=== PATIENT | female | born 2000 | race Caucasian/White ===

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

== ENCOUNTER 2020-06-02 13:10 | Emergency (ER) | payer MEDICAID, OTHER ==
[~2020-06-02] VITALS: Ht 167.6 cm; Wt 64.3 kg
--- NOTE | 2020-06-02 14:20 | NUR ---
JOSE CARLOS, PSYCH MEDICATION AIDE AND JADON AT BEDSIDE FOR EVALUATION.
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
[2020-06-02] MEDS ORDERED: LORazepam 1MG TABLET PO ONE (15:00)
[2020-06-02] MEDS ORDERED: LORazepam 1MG TABLET ONE (15:02)
[2020-06-02 15:07] LABS: BASOPHILS % (AUTO) 1 % (0-1); EOSINOPHILS % (AUTO) 1 % (1-7); LYMPHOCYTES % (AUTO) 24 % (22-44); MEAN CORPUSCULAR HEMOGLOBIN 29.8 pg (27.0-34.8); MEAN CORPUSCULAR HGB CONC 34.2 g/dL (32.4-35.8); MEAN PLATELET VOLUME 6.7 fL (7.4-10.4); MONOCYTES % (AUTO) 6 % (2-9); NEUTROPHILS % (AUTO) 68 % (42-75); PLATELET COUNT 323 x10^3/uL (130-400); RED BLOOD COUNT 4.92 x10^6/uL (3.82-5.3); RED CELL DISTRIBUTION WIDTH 12.3 % (9.6-15.2)
--- NOTE | 2020-06-02 15:13 | NUR ---
PATIENT LAYING IN GURNEY, STARING AT CEILING, FLAT AFFECT, NADN, VSS, SITTER IN LINE OF SIGHT, WILL CONTINUE TO MONITOR.
[2020-06-02 15:19] LABS: ALBUMIN 4.9 g/dL (3.4-5.0); ANION GAP 11 mmol/L (5-15); CALCIUM 8.7 mg/dL (8.5-10.1); CHLORIDE 109 mmol/L (98-107); MD NO
[2020-06-02 15:22] LABS: SALICYLATE LEVEL < 1.7 mg/dL (2.8-20.0)
[2020-06-02 15:25] LABS: ALANINE AMINOTRANSFERASE 34 U/L (12-78); ALKALINE PHOSPHATASE 77 U/L (45-117); BILIRUBIN,TOTAL 0.9 mg/dL (0.2-1.0); CREATININE 0.86 mg/dL (0.55-1.02); TOTAL PROTEIN 8.4 g/dL (6.4-8.2)
--- NOTE | 2020-06-02 15:51 | NUR ---
MOM IS YOLANDA, PHONE NUMBER IS [phone].
--- NOTE | 2020-06-02 16:04 | NUR ---
PATIENT LAYING IN GURNEY STARING AT CEILING, ASKED PATIENT IF SHE CAN TRY AND URINATE AT THIS TIME FOR SAMPLE. PATIENT SLOW TO RESPOND, PATIENT DOES NOT GIVE VERBAL RESPONSE, JUST SHAKES HER HEAD NO. SHARON WOODS, SITTER IN LINE OF SIGHT.
--- NOTE | 2020-06-02 16:48 | NUR ---
PATIENT DOES NOT WANT TO GET UP AND USE BATHROOM TO LEAVE URINE SAMPLE. URINE SAMPLE OBTAINED VIA STRAIGHT CATH, WITH SERGEI RABAGO DOWEL SANDER OPERATOR TO THIS RN. PATIENT TOLERATED PROCEDURE WELL, URINE SENT TO LAB.
[2020-06-02 17:06] LABS: AMPHETAMINE SCREEN, URINE Negative (Negative); BARBITURATE SCREEN, URINE Negative (Negative); BENZODIAZEPINE SCREEN, URINE Negative (Negative); CANNABINOID SCREEN, URINE Positive (Negative); COCAINE SCREEN, URINE Negative (Negative); METHADONE SCREEN, URINE Negative (Negative); OPIATE SCREEN, URINE Negative (Negative)
--- NOTE | 2020-06-02 17:46 | NUR ---
BREAK RN: PT RESTING IN ROOM. NO ACUTE DISTRESS NOTED. VS STABLE. SITTER AT DOOR. WILL CONTINUE TO MONITOR WHILE PRIMARY RN IS ON BREAK.
--- NOTE | 2020-06-02 18:21 | NUR ---
BREAK RN: REPORT GIVEN TO GUSTAVO ZUNIGA
--- NOTE | 2020-06-02 18:26 | NUR ---
PACKET FAXED TO [facility]
--- NOTE | 2020-06-02 18:28 | NUR ---
PATIENT RESTING IN GURNEY, STARING AT CEILING, NADN, VSS, SITTER IN LINE OF SIGHT, WILL CONTINUE TO MONITOR.
--- NOTE | 2020-06-02 19:57 | NUR ---
PATIENT RESTING IN GURNEY WITH EYES CLOSED, RESPIRATIONS EVEN AND UNLABORED, VSS, SITTER IN LINE OF SIGHT, WILL CONTINUE TO MONITOR.
--- NOTE | 2020-06-02 20:44 | NUR ---
SPOKE WITH MOM AND UPDATED ON POC.
--- NOTE | 2020-06-02 21:20 | NUR ---
PATIENT TRANSFERRED TO HOSPITAL BED, PATIENT ABLE TO AMBULATED WITH STEADY GAIT FROM [facility] TO HOSPITAL BED.
--- NOTE | 2020-06-02 22:32 | NUR ---
report from mandy bansal
--- NOTE | 2020-06-02 22:33 | NUR ---
pt resting on hospital bed. call light within reach and educated on its use. pt denies needs at this time. denies si. pt offered meal. declined. i told her to let me know if she changes her mind and i will get her a meal.
--- NOTE | 2020-06-02 22:34 | NUR ---
pt denies any home meds
--- NOTE | 2020-06-02 23:56 | NUR ---
REPORT TO GUSTAVO MAHAN
--- NOTE | 2020-06-03 00:07 | NUR ---
PT MOVED TO SECURE ROOM. PT SLEEPING, VISIBLE CHEST RISE AND FALL. SITTER WATCHING.
--- NOTE | 2020-06-03 07:12 | NUR ---
Report from GUSTAVO Barajas
--- NOTE | 2020-06-03 07:46 | NUR ---
Pt with flat affect, denies needs at this time. Sitter outside room. VS updated.
--- NOTE | 2020-06-03 08:06 | NUR ---
Diet tray ordered
--- NOTE | 2020-06-03 09:31 | NUR ---
Pt sleeping, no distress noted.
--- NOTE | 2020-06-03 10:25 | NUR ---
No change to baseline. Flat affect, nods "yes", "no", for all communication. VSWNL.
--- NOTE | 2020-06-03 11:15 | NUR ---
Female RN at bedside to assess pt for self inflicted cutting in groin area. RN states approx. 3 cm superficial cuts. Pt states cuts are 1 month old.
[2020-06-03] MEDS ORDERED: HYDROXYZINE PAMOATE 50MG CAP PO PRN (11:30)
[2020-06-03] MEDS ORDERED: TRAZODONE 50MG TABLET PO PRN (11:30)
--- NOTE | 2020-06-03 11:49 | NUR ---
Per psych MUSIC THEORY TEACHER, mom allowed to visit. Parent updated.
--- NOTE | 2020-06-03 14:14 | NUR ---
PT MOVED TO ROOM 2 AND ASSUMED CARE OF PT. PT IS IN DIRECT SITE OF SITTER.
[2020-06-03] MEDS ORDERED: SERTRALINE 50MG TABLET ONE (14:43)
[2020-06-03] MEDS ORDERED: OLANZAPINE 5 MG TABLET ONE (14:43)
[2020-06-03] MEDS: OLANZAPINE 5 MG TABLET PO SCH (14:50)
[2020-06-03] MEDS: SERTRALINE 50MG TABLET PO SCH (14:51)
--- NOTE | 2020-06-03 14:53 | NUR ---
RECEIVED REPORT FROM LUIS AND MEDICATED NOTED ON AUG.
--- NOTE | 2020-06-03 16:06 | NUR ---
PT SLEEPING. HR DECREASED TO 85.
--- NOTE | 2020-06-03 18:49 | NUR ---
PT DINNER DELIVERED AND LEFT BEDSIDE. PT RESTING WITH EYES CLOSED. EVEN RISE AND FALL OF CHEST NOTED. IN FULL VIEW OF THE SITTER.
--- NOTE | 2020-06-03 19:08 | NUR ---
REPORT GIVEN TO GUSTAVO MAHAN
--- NOTE | 2020-06-03 19:24 | NUR ---
REPORT FROM GUSTAVO SERRANO. PT RESTING IN BED, IN VIEW OF SITTER. PT SLEEPING, AWAKES WHEN THIS RN TOUCHES HER HAND. PT NOT ANSWERING QUESTIONS, THIS RN ASKED "WILL YOU TALK TO ME," PT SHOOK HEAD NO IN RESPONSE.
--- NOTE | 2020-06-04 06:57 | NUR ---
REPORT RECEIVED FROM GUSTAVO MAHAN. ASSUMING PRIMARY CARE OF PT.
--- NOTE | 2020-06-04 07:08 | NUR ---
PT ASLEEP ON HOSPITAL BED. RR EVEN AND UNLABORED. SI PRECAUTIONS IMPLEMENTED. SITTER AT BEDSIDE.
--- NOTE | 2020-06-04 07:24 | NUR ---
AM MEDICATED REQUESTED WITH PHARMACY.
[2020-06-04] MEDS ORDERED: OLANZAPINE 5 MG TABLET ONE (08:23)
[2020-06-04] MEDS: SERTRALINE 50MG TABLET PO SCH (08:26)
[2020-06-04] MEDS: OLANZAPINE 5 MG TABLET PO SCH (08:26)
--- NOTE | 2020-06-04 08:32 | NUR ---
PT MEDICATED PER EMAR. BREAKFAST PROVIDED TO PT.
--- NOTE | 2020-06-04 10:20 | NUR ---
RN UPDATED PT'S MOTHER. MOM WANTS PT TO CALL WHEN PT IS MORE AWAKE.
--- NOTE | 2020-06-04 11:55 | NUR ---
LUNCH DELIVERED TO PT. PT ASLEEP ON HOSPITAL BED. RR EVEN AND UNLABORED. SI PRECAUTIONS IMPLEMENTED. SITTER OUTSIDE OF ROOM MONITORING PT.
--- NOTE | 2020-06-04 16:10 | NUR ---
BACK TO ASSUMING PRIMARY CARE OF PT.
--- NOTE | 2020-06-04 16:30 | NUR ---
MOM AT BEDSIDE.
--- NOTE | 2020-06-04 17:38 | NUR ---
RN DELIVERED PT DINNER. PT LYING ON HOSPITAL BED. NO NEEDS AT THIS TIME.
--- NOTE | 2020-06-04 18:51 | NUR ---
REPORT TO GUSTAVO JUAREZ.
--- NOTE | 2020-06-04 19:27 | NUR ---
Report from GUSTAVO Irwin. Pt sleeping RR equal and unlabored. sitter in line of site, [facility]
--- NOTE | 2020-06-05 00:11 | NUR ---
Sleeping, RR equal and unlabored. Sitter in line of site; will continue moitoring.
--- NOTE | 2020-06-05 03:03 | NUR ---
Sleeping, RR equal and unlabored. Sitter in line of site.
--- NOTE | 2020-06-05 04:08 | NUR ---
Sleeping RR equal and unlabored. Sitter in line of site.
--- NOTE | 2020-06-05 06:51 | NUR ---
report to mandy arnold
--- NOTE | 2020-06-05 07:09 | NUR ---
Took report from Jie Blackman RN, assume care at this time.
[2020-06-05] MEDS ORDERED: SERTRALINE 50MG TABLET ONE (07:31)
[2020-06-05] MEDS ORDERED: OLANZAPINE 5 MG TABLET ONE (07:32)
--- NOTE | 2020-06-05 07:52 | NUR ---
ED DIET TRAY ORDERED
[2020-06-05] MEDS: OLANZAPINE 5 MG TABLET PO SCH (08:12)
[2020-06-05] MEDS: SERTRALINE 50MG TABLET PO SCH (08:12)
--- NOTE | 2020-06-05 08:15 | NUR ---
ROOM IS SAFE AND SECURE WITH DIANA SITTER OUTSIDE ROOM. PT ON HOSPITAL BED SITTING UP. PT IS WITHDRAWN, TALKING SOFT, NODDING HEAD TO ANWSER QUESTIONS. NO REQUESTS AT THIS TIME.
--- NOTE | 2020-06-05 08:34 | NUR ---
GAVE WATER TO PT
--- NOTE | 2020-06-05 11:46 | NUR ---
DIET TRAY GIVEN
--- NOTE | 2020-06-05 15:08 | NUR ---
THROUGHPUT RN: CALLED [facility], SPOKE WITH [place]ERT[place] WHO TOOK MSG FOR DRAWER WAXER TO CALL ER BACK WITH UPDATE ON PT STATUS/ACCEPTANCE. WILL BE AWAITING RETURN CALL FROM [facility] DRAWER WAXER
--- NOTE | 2020-06-05 15:39 | NUR ---
PTS MOTHER TALKING TO SW ABOUT PLAN OF CARE
--- NOTE | 2020-06-05 15:44 | NUR ---
THROUGHPUT RN: SPOKE WITH [facility] DONTA MENJIVAR, STATES "PT IS 4TH ON PRIORITY LIST, HOWEVER WE WILL NOT BE ACCEPTING ANY PT'S UNTIL NEXT WEEK." DISCUSSED WITH CHEL ROMAN AND SERGEI POLO, AWARE.
--- NOTE | 2020-06-05 17:33 | NUR ---
PT AMBULATED TO THE SHOWER WITH STEADY GATE. PT IN THE SHOWER AT THIS TIME. ROOM HAS BEEN CLEANED, NEW SHEETS PUT ON THE BED.
[2020-06-05] MEDS ORDERED: TRAZODONE 50MG TABLET ONE (18:32)
--- NOTE | 2020-06-05 18:59 | NUR ---
REPORT RECIEVED FROM GUSTAVO KEVIN. PT SLEEPING IN BED, RESPIRATIONS EVEN/UNLABORED
--- NOTE | 2020-06-05 20:14 | NUR ---
PT LAYING IN [place], PT HAS VERY FLAT AFFECT, STATES NO NEEDS AT THIS TIME, ROOM SECURED, CALL LIGHT WITHIN REACH, IN LINE OF SIGHT OF SITTER
[2020-06-05] MEDS ORDERED: TRAZODONE 50MG TABLET PO SCH (21:00)
--- NOTE | 2020-06-05 21:37 | NUR ---
PT SLEEPING, RESP EVEN/UNLABORED, IN LINE OF SIGHT OF SITTER
--- NOTE | 2020-06-05 23:31 | NUR ---
PT GIVEN SOUP EARLIER, PT SLEEPING NOW, RESP EVEN/UNLABORED, IN LINE OF SIGHT OF PEGGY
--- NOTE | 2020-06-06 01:54 | NUR ---
PT SLEEPING, IN LINE OF SIGHT OF SITTER, CALL LIGHT WITHIN REACH.
--- NOTE | 2020-06-06 03:45 | NUR ---
PT SLEEPING, IN LINE OF SIGHT OF SITTER. RESP EVEN/UNLABORED
--- NOTE | 2020-06-06 05:06 | NUR ---
PT AMBULATE TO RESTROOM, NO NEEDS AT THIS TIME, PT BACK IN BED WITHIN LINE OF SIGHT OF SITTER
--- NOTE | 2020-06-06 06:16 | NUR ---
PT RESTING IN BED, STATES NO NEEDS AT THIS TIME. PT STILL HAS VERY FLAT AFFECT. IN LINE OF SIGHT OF QINGTER
--- NOTE | 2020-06-06 06:54 | NUR ---
bedside report given to mandy wynne
--- NOTE | 2020-06-06 06:55 | NUR ---
REPORT RECEIVED FROM ARMANDO CHEN. PT RESTING ON HOSPITAL BED W/ GARAGE DOORS DOWN AND SITTER OUTSIDE FOR SAFETY. RESP EVEN AND UNLABORED, PEGGY.
--- NOTE | 2020-06-06 08:28 | NUR ---
SAFETY BREAKFAST TRAY DELIVERED TO PT. PT SITTING UP ON HOSPITAL BED W/ SITTER OUTSIDE AND GARAGE DOORS DOWN FOR SAFETY.
--- NOTE | 2020-06-06 08:43 | NUR ---
PT DENIES SI AT THIS TIME, HOWEVER PT APPEARS DESPONDENT, MAKING LITTLE EYE CONTACT AND SPEAKING SOFTLY. WILL CONTINUE TO MONITOR.
[2020-06-06] MEDS: OLANZAPINE 10 MG TABLET PO SCH (09:00)
[2020-06-06] MEDS: SERTRALINE 50MG TABLET PO SCH (09:00)
--- NOTE | 2020-06-06 10:05 | NUR ---
PT RESTING ON HOSPITAL BED W/ GARAGE DOORS DOWN AND SITTER OUTSIDE FOR SAFETY. RESP EVEN AND UNLABORED, PEGGY.
--- NOTE | 2020-06-06 11:02 | NUR ---
RECEIVED REPORT FROM BJ CHEN. ASSUMING CARE AT THIS TIME. PT RESTING ON HOSPITAL BED. PT IN DIRECT SIGHT OF SITTER. ROOM SECURE.
--- NOTE | 2020-06-06 12:00 | NUR ---
DIET TRAY PROVIDED. PT IN DIRECT SIGHT OF SITTER.
--- NOTE | 2020-06-06 13:30 | NUR ---
PT SLEEPING ON HOSPITAL BED. RESP EVEN AND UNLABORED. PT IN DIRECT SIGHT OF SITTER, ROOM SECURE.
--- NOTE | 2020-06-06 14:47 | NUR ---
PT SLEEPING ON HOSPITAL BED. RESP EVEN AND UNLABORED. PT IN DIRECT SIGHT OF SITTER, ROOM SECURE.
--- NOTE | 2020-06-06 16:08 | NUR ---
PT SLEEPING ON HOSPITAL BED. RESP EVEN AND UNLABORED. PT IN DIRECT SIGHT OF SITTER, ROOM SECURE.
--- NOTE | 2020-06-06 17:17 | NUR ---
PT SLEEPING ON HOSPITAL BED. RESP EVEN AND UNLABORED. PT IN DIRECT SIGHT OF SITTER, ROOM SECURE.
--- NOTE | 2020-06-06 17:49 | NUR ---
PT PROVIDED DIET TRAY. PT DENIES NEEDS AT THIS TIME. PT IN DIRECT SIGHT OF SITTER.
--- NOTE | 2020-06-06 20:06 | NUR ---
PT SLEEPING ON HOSPITAL BED. RESP EVEN AND UNLABORED. PT IN DIRECT SIGHT OF SITTER, ROOM SECURE.
--- NOTE | 2020-06-06 20:47 | NUR ---
PT MOM AT BEDSIDE.
--- NOTE | 2020-06-06 22:42 | NUR ---
PT SLEEPING ON HOSPITAL BED. RESP EVEN AND UNLABORED. PT IN DIRECT SIGHT OF SITTER, ROOM SECURE.
--- NOTE | 2020-06-06 23:02 | NUR ---
received report from offgoing RN, pt sleeping.
--- NOTE | 2020-06-07 01:18 | NUR ---
pt sleeping, no distress at this time. sitter at bedside.
--- NOTE | 2020-06-07 04:10 | NUR ---
no changes to pt status. sitter outside of room. pt sleeping in bed, no distress.
--- NOTE | 2020-06-07 06:51 | NUR ---
Report and care given to day shift RN
--- NOTE | 2020-06-07 06:52 | NUR ---
BEDSIDE REPORT RECEIVED FROM REMY CHEN.
--- NOTE | 2020-06-07 07:03 | NUR ---
PT SUPINE ON HOSPITAL BED, NAD, VSS. PT RESTING CALMLY AND COMFORTABLY. DENIES ANY NEEDS AT THIS TIME. SITTER WITHIN VIEW. SAFETY CLEMENS DOWN AND SAFETY PRECAUTIONS IN PLACE. WILL CONTINUE TO MONITOR.
[2020-06-07 07:04] VITALS: BP 102/66
--- NOTE | 2020-06-07 08:10 | NUR ---
PT SITTING UPRIGHT ON HOSPITAL BED EATING BREAKFAST TRAY. NAD. PT CALM AND COOPERATIVE WITH STAFF. DENIES ANY NEEDS AT THIS TIME.
[2020-06-07] MEDS: OLANZAPINE 10 MG TABLET PO SCH (09:00)
[2020-06-07] MEDS: SERTRALINE 50MG TABLET PO SCH (09:00)
--- NOTE | 2020-06-07 10:00 | NUR ---
Bedside report to Stephanie CHEN
--- NOTE | 2020-06-07 10:41 | NUR ---
Pt resting in room, am medications administered. [place] provided.
--- NOTE | 2020-06-07 11:54 | NUR ---
REPORT RECEIVED FROM GUSTAVO MURRY FOR TRANSFER OF PATIENT CARE.
--- NOTE | 2020-06-07 12:16 | NUR ---
PATIENT RESTING IN HOSPITAL BED WITH EYES CLOSED, RESP EVEN AND UNLABORED, NADN, SUICIDE PRECAUTIONS IN PLACE, SITTER IN LINE OF SIGHT.
--- NOTE | 2020-06-07 12:53 | NUR ---
MOM IN ROOM, PATIENT BELONGINGS GIVEN TO PATIENT. CLEAN PANTS, UNDERWEAR AND SOCKS PROVIDED TO PATIENT. BELL, STEM CLEANING MACHINE FEEDER IN ROOM TALKING TO PATIENT AND MOM ABOUT PRESCRIPTIONS.
== END 2020-06-07 13:53 | disposition home or self-care (01) ==
LOC: ED 15:51
DX: F20.0 Paranoid schizophrenia (principal)
CPT/HCPCS: 36415; 80053; 80299; 80307; 80320; 80329; 84703; 85025; 99285; G0480